=== PATIENT | female | born 1995 | race Two or more races ===

== ENCOUNTER 2024-03-06 07:18 | Emergency (ER) | payer BC, MEDICAID, SELFPAY ==
[2024-03-06 07:20] VITALS: BMI 39.3
[2024-03-06 07:36] VITALS: BP 118/83; PULSE 106; RESP 18; TEMP 37.2; O2SAT 97
--- NOTE | 2024-03-06 07:53 | PD.EDRME ---
Rapid Medical Screening Exam [facility] Arrival date/time: 03/06/24 07:18 Chief Complaint: OB/Uterine Contractions Vital signs: Vital Signs Temperature 99.0 F 03/06/24 07:36 Pulse Rate 106 H 03/06/24 07:36 Respiratory Rate 18 03/06/24 07:36 Blood Pressure 118/83 03/06/24 07:36 Pulse Oximetry (%) 97 03/06/24 07:36 Oxygen Delivery Method Room Air 03/06/24 07:36 [facility] Narrative: 28-year-old female presents emergency department with complaint of vaginal bleeding that started yesterday. She complains of back pain and pelvic pain. She is G3, P2 currently 12 weeks . She denies any alleviating or aggravating factors
--- NOTE | 2024-03-06 07:55 | XR_ITS ---
Examination: Complete OB ultrasound, less than 14 weeks, transabdominal Date and time of exam: March 06, 2024 0842 hrs. Indications: Vaginal bleeding with left-sided pelvic pain onset today Technique: Obstetrical ultrasound images less than 14 weeks performed via transabdominal imaging Findings: A normal shaped single intrauterine gestation is present in the uterus. pole 5.1 cm corresponds to 11 week 6 day gestational age Cardiac motion 158 BPM Ultrasonographic survey of visible and placental structures unremarkable. Amniotic fluid volume appears appropriate for this estimated gestational age. Right ovary 2.9 x 1.9 x 2.7 cm arterial flow Left ovary 3.9 x 2.9 x 3.2 cm arterial flow, 34 x 25 mm cyst Impression: Viable intrauterine gestation 11 weeks 6 days.
[2024-03-06 08:34] LABS: Basophils % (Auto) 0 % (0-2.5); Eosinophils # (Auto) 0.1 Thou/mm3 (0.0-0.5); Eosinophils % (Auto) 1 % (0-10); Hematocrit 34.6 % (36.0-46.0); Hemoglobin 11.8 g/dL (12.0-16.0); Immature Granulocytes % (Auto) 0 % (0-0); Immature Granulocytes Auto 0.02 Thou/mm3 (0.00-0.00); Lymphocytes # (Auto) 2.2 Thou/mm3 (1.0-4.8); Lymphocytes % (Auto) 24 % (10-50); Mean Corpuscular HGB Conc 34.1 g/dl (31.0-37.0); Mean Corpuscular Hemoglobin 28.7 pg (25.0-35.0); Mean Corpuscular Volume 84 fL (80-100); Monocytes # (Auto) 0.5 Thou/mm3 (0.0-0.8); Monocytes % (Auto) 5 % (0-12); Neutrophils # (Auto) 6.4 Thou/mm3 (1.8-7.7); Neutrophils % (Auto) 70 % (37-80); Nucleated Red Blood Cell % 0 /100 WBC (0); Platelet Count 308 Thou/mm3 (140-440); RDW Standard Deviation 40.2 fL (36.4-46.3); Red Blood Count 4.11 Miln/mm3 (4.00-5.20); White Blood Count 9.2 Thou/mm3 (3.6-11.0)
[2024-03-06 08:49] LABS: Alanine Aminotransferase 10 U/L (10-49); Albumin, Serum 4.5 gm/dL (3.5-5.0); Albumin/Globulin Ratio 1.6 (1.2-2.2); Alkaline Phosphatase 127 U/L (46-116); Anion Gap 8 (7-16); Aspartate Amino Transferase < 8 U/L (0-34); BUN/Creatinine Ratio 14 Ratio (12-20); Bilirubin,Total 0.3 mg/dL (0.3-1.2); Blood Urea Nitrogen 7 mg/dL (9-23); Calcium 9.3 mg/dL (8.3-10.6); Calcium (Corrected) 9.3 mg/dL (8.5-10.1); Carbon Dioxide 24.2 mMol/L (20.0-31.0); Chloride 105 mMol/L (98-107); Creatinine (Component) 0.5 mg/dL (0.6-1.3); Globulin 2.8 gm/dL (2.3-3.5); Glucose 91 mg/dL (74-106); Osmolality,Calculated 271 (275-295); Sodium 137 mMol/L (136-145); Total Protein 7.3 gm/dL (5.7-8.2); eGFR > 60 See Note
[2024-03-06 08:55] LABS: Collection Type, Urine Clean Catch
[2024-03-06 09:06] LABS: Bacteria,Urine Rare; Bilirubin,Urine Negative (Negative); Blood,Urine 3+ (Negative); Color,Urine Yellow (Lt Yel-Yel); Glucose, Urine Negative (Negative); Ketones,Urine Negative (Negative); Leukocyte Esterase,Urine Negative (Negative); Nitrite,Urine Negative (Negative); Protein,Urine Trace (Neg - Trace); RBC,Urine 4 /hpf (0-3); Specific Gravity,Urine 1.031 (1.001-1.035); Squamous Epithelial Cell,Urine 7 /hpf (0-5); Urobilinogen,Urine Negative mg/dL (0.0-1.0); WBC,Urine 3 /hpf (0-5)
[2024-03-06 09:07] LABS: Clarity,Urine Hazy (Clear/Hazy)
[2024-03-06 09:38] LABS: Beta HCG,Quantitative 91682 mIU/mL (<5.0)
--- NOTE | 2024-03-06 11:31 | PD.EDRME ---
Rapid Medical Screening Exam E Arrival date/time: 03/06/24 07:18 28-year-old female presents emergency department with complaint of vaginal bleeding that started yesterday. She complains of back pain and pelvic pain. She is G3, P2 currently 12 weeks . She denies any alleviating or aggravating factors Chief Complaint: OB/Uterine Contractions Time Seen by Provider: 03/06/24 11:31 Vital signs: Vital Signs Temperature 99.0 F 03/06/24 07:36 Pulse Rate 106 H 03/06/24 07:36 Respiratory Rate 18 03/06/24 07:36 Blood Pressure 118/83 03/06/24 07:36 Pulse Oximetry (%) 97 03/06/24 07:36 Oxygen Delivery Method Room Air 03/06/24 07:36 [facility] Narrative: 28-year-old female presents emergency department with complaint of vaginal bleeding that started yesterday. She complains of back pain and pelvic pain. She is G3, P2 currently 12 weeks . She denies any alleviating or aggravating factors
--- NOTE | 2024-03-06 11:34 | EDNOTE_ITS ---
ED General RME/HPI General Chief complaint: OB/Uterine Contractions Stated complaint: 12 wks, spotting, cramping since morning Time Seen by Provider: 03/06/24 11:31 Arrival date/time: 03/06/24 07:18 CC: Vaginal spotting HPI ongoing this morning, diffuse mild low center abdominal cramping no back pain denies any nausea vomiting painful urination or bloody urination patient is a G3, P2 at estimated 12 weeks. No other complaints has not had her first OB appointment yet. Related Data Home Medications ?Medication ?Instructions ?Recorded ?Confirmed ergocalciferol (vitamin D2) 1,250 1.25 mcg PO QWEEK 12/08/22 12/08/22 mcg (50,000 unit) capsule Previous Rx's ?Medication ?Instructions ?Recorded docusate sodium 100 mg capsule 100 mg PO BID #40 caps 12/09/22 (Colace) hydrocodone 5 mg-acetaminophen 325 1 tab PO Q6H PRN pain (scale score 12/09/22 mg tablet 7-10) #20 tabs ibuprofen 600 mg tablet 600 mg PO Q8H PRN pain (scale 12/09/22 score 4-6) #15 tabs schtgnf-qgagxrfiapkto-zqatfcjn 250 2 tab PO DAILY PRN headache #14 01/27/23 mg-250 mg-65 mg tablet (Excedrin tabs Migraine) Allergies Allergy/AdvReac Type Severity Reaction Status Date / Time No Known Allergies Allergy Verified 08/19/23 17:17 Review of Systems Review of Systems Narrative Review of Systems: GEN: No fever, no chills, no weight loss EYES: No discharge, no visual changes, no pain HEENT: No ear pain, no congestion, no sore throat PULM: No shortness of breath, no cough, no congestion CV: No chest pain, no dyspnea on exertion, no palpitations GI: No nausea, no vomiting, no diarrhea, no pain, no constipation : No frequency, no urgency, no dysuria MUSC/SKEL: No joint pain, no back pain SKIN: No rash PSYCH: No hallucinations, no depression HEME/LYMPH: No easy bleeding or bruising tendencies NEURO: No weakness, no headache Past Medical History Past Medical History NEUROLOGIC: Negative Neurological Disorders or Seizures CARDIAC: Negative Cardiac Disorders or Congestive Heart Failure RESPIRATORY: Positive Pneumonia; Negative Chronic Obstructive Pulmonary Disease (COPD) or Asthma GASTROINTESTINAL: Positive Gastrointestinal Disorders, Gall Bladder Disease and Obesity; Negative Hepatitis or Colorectal Cancer GENITOURINARY: Positive Genitourinary Disorders and Kidney Stones; Negative Renal Disease or Prostate Cancer REPRODUCTIVE: Positive Previous Pregnancies; Negative Breast Cancer, Endometriosis, Pelvic Inflammatory Disease, Testicular Cancer or Uterine Prolapse MUSCULOSKELETAL: Negative Musculoskeletal Disorders or Bone Cancer ENDOCRINE: Negative Endocrine Disorders, Diabetes Mellitus Type 1 or Diabetes Mellitus Type 2 HEMATOLOGIC: Positive Blood Disorders and Anemia; Negative Leukemia, Hemophilia, Sickle Cell Disease or Clotting Problems PSYCHO/SOCIAL: Negative Depression or Anxiety OTHER HISTORY: Positive Chicken Pox; Negative Hospitalization, Autoimmune Disease, Down Syndrome, Developmental Delay, Shingles, Falls, Blood Transfusions, Anesthesia Reactions, MRSA, VRSA, Human Immunodeficiency Virus (HIV), Measles, Mumps, Rubella (Czech Measles), Pertussis, Clostridium Difficile, Cancer, Breast Cancer, Cervical Cancer, Colorectal Cancer, Lung Cancer, Ovarian Cancer, Prostate Cancer or Testicular Cancer Family History FAMILY HISTORY: Positive Family Surgery (MOTHER HAD ANKLE SX); Negative Family Psychiatric Problems, Family Respiratory Disorders, Family Cardiac Disorders, Family Gastrointestinal Problems, Family Cancer or Family Anesthesia Reaction Surgical History SURGICAL: Negative Section Social History SMOKING STATUS: Never smoker SECOND HAND EXPOSURE: No ED Exam Narrative Physical exam: [General: Obese not in any acute distress Head normocephalic HEENT: Within acceptable limits Neck is supple nontender Chest equal chest rise nontender to palpation Respiratory: Clear to auscultation no wheezes crackles or rubs CV: Rate rhythm is regular no murmurs rubs or clicks Abdomen is distended secondary to body habitus soft nontender no masses positive bowel sounds all 4 quadrants Back: No CVA tenderness no spinous process tenderness from cervical spine thoracic and lumbar spine Skin: Intact no petechiae rash induration ulceration or crepitus Extremities: Moving all extremity against resistance cap refill less than 2 seconds neurosensory intact Neuro: Awake alert oriented x3 Glascow coma 15 no focal deficits] Course Quality Measures none Orders Category Date Time Status US OB <= 14 weeks fetus Stat Exams 03/06/24 07:55 Completed ABO/RH Type Stat Lab 03/06/24 07:55 Completed Beta HCG,Quantitative Stat Lab 03/06/24 07:55 Completed CBC Stat Lab 03/06/24 07:55 Completed Comprehensive Metabolic Panel Stat Lab 03/06/24 07:55 Completed Urinalysis Stat Lab 03/06/24 08:34 Completed Vital Signs Vital signs: Vital Signs Temperature 99.0 F 03/06/24 07:36 Pulse Rate 106 H 03/06/24 07:36 Respiratory Rate 18 03/06/24 07:36 Blood Pressure 118/83 03/06/24 07:36 Pulse Oximetry (%) 97 03/06/24 07:36 Oxygen Delivery Method Room Air 03/06/24 07:36 MDM Patient data External records reviewed:: [facility] previous records Clinical information provided by:: patient Social determinants that could affect healthcare access:: none Patient has the following chronic illnesses:: None How is presenting disease/condition affected by chronic disease/condition?: u neffected by Evaluation data The following diagnostics were reviewed and interpreted by me:: lab results and radiology exam(s) Lab and/or radiology exams considered but not ordered:: Ultrasound shows a single IUP at 12 weeks 2 days heart tones at 158. CBC shows no acute leukocytosis anemia thrombocytopenia CMP shows no acute electrolyte imbalances renal impairment transaminitis or T. bili elevation. Quantitative hCG is at 91,600 urine is negative for UTI ABO Rh is O+. Interpretation Summary: Single IUP second trimester vaginal bleeding Medications Medications considered but not ordered:: None Medication administrations:: None Consultations Consultation(s) initiated? (list below): No Diagnosis Differential Diagnosis ED Complaint MDM: Threatened miscarriage ectopic secondary menstrual vaginal bleeding Most likely diagnosis given after review of the tests above:: Secondary menstrual vaginal bleeding Admission Indicated Admission indicated?: not indicated Explain why admission is indicated or not indicated:: Stable for follow-up Admission Request Was there a request for admission?: No Disposition Plan Disposition Plan: Discharge Discharge Attestation Discharge Attestation: The patient and all family members were given an opportunity to ask questions and understood the discharge instructions. Discharge instructions specifically effects, indications for sooner follow up or return to the emergency department, and the expected course of current diagnosis. Patient condition: Stable Medical Decision Making Differential Diagnosis Differential Diagnosis: Threatened miscarriage ectopic secondary menstrual vaginal bleeding Lab Data 03/06/24 07:55 03/06/24 07:55 Labs: Lab Results 03/06/24 03/06/24 Range/Units 07:55 08:34 WBC 9.2 (3.6-11.0) Thou/mm3 RBC 4.11 (4.00-5.20) Miln/mm3 Hgb 11.8 L (12.0-16.0) g/dL Hct 34.6 L (36.0-46.0) % MCV 84 (80-100) fL MCH 28.7 (25.0-35.0) pg MCHC 34.1 (31.0-37.0) g/dl RDW Std Deviation 40.2 (36.4-46.3) fL Plt Count 308 (140-440) Thou/mm3 Neut % (Auto) 70 (37-80) % Lymph % (Auto) 24 (10-50) % [place] % (Auto) 5 (0-12) % Eos % (Auto) 1 (0-10) % Baso % (Auto) 0 (0-2.5) % Neut # (Auto) 6.4 (1.8-7.7) Thou/mm3 Lymph # (Auto) 2.2 (1.0-4.8) Thou/mm3 [place] # (Auto) 0.5 (0.0-0.8) Thou/mm3 Eos # (Auto) 0.1 (0.0-0.5) Thou/mm3 Baso # (Auto) 0.0 (0.0-0.2) Thou/mm3 Immature Gran # (Auto) 0.02 H (0.00-0.00) Thou/mm3 Absolute Nucleated RBC 0.00 (0.00-0.00) Thou/mm3 Immature Gran % 0 (0-0) % Nucleated RBC % 0 (0) /100 WBC Sodium 137 (136-145) mMol/L Potassium 4.0 (3.4-5.1) mMol/L Chloride 105 (98-107) mMol/L Carbon Dioxide 24.2 (20.0-31.0) mMol/L Anion Gap 8 (7-16) BUN 7 L (9-23) mg/dL Creatinine 0.5 L (0.6-1.3) mg/dL Estim Creat Clear Calc 181.0 (>60) mL/min eGFR > 60 (60 - ) See Note BUN/Creatinine Ratio 14 (12-20) Ratio Glucose 91 (74-106) mg/dL Calculated Osmolality 271 L (275-295) Calcium 9.3 (8.3-10.6) mg/dL Corrected Calcium 9.3 (8.5-10.1) mg/dL Total Bilirubin 0.3 (0.3-1.2) mg/dL AST < 8 (0-34) U/L ALT 10 (10-49) U/L Alkaline Phosphatase 127 H (46-116) U/L Total Protein 7.3 (5.7-8.2) gm/dL Albumin 4.5 (3.5-5.0) gm/dL Globulin 2.8 (2.3-3.5) gm/dL Albumin/Globulin Ratio 1.6 (1.2-2.2) Beta HCG, Quant 59499 (<5.0) mIU/mL Ur Collection Type Clean Catch Urine Color Yellow (Lt Yel-Yel) Urine Clarity Hazy (Clear/Hazy) Urine pH 6.0 (5.0-7.0) Ur Specific [place] 1.031 (1.001-1.035) Urine Protein Trace (Neg - Trace) Urine Glucose (UA) Negative (Negative) Urine Ketones Negative (Negative) Urine Blood 3+ A (Negative) Urine Nitrite Negative (Negative) Urine Bilirubin Negative (Negative) Urine Urobilinogen (Auto) Negative (0.0-1.0) mg/dL Ur Leukocyte Esterase Negative (Negative) Urine RBC 4 H (0-3) /hpf Urine WBC 3 (0-5) /hpf Ur Squamous Epith Cells 7 H (0-5) /hpf Urine Bacteria Rare (None) Blood Type O Positive Blood Bank Wristband ID Yes Discharge Plan Plan Patient Disposition: HOME (Self Care) Patient condition on transfer: Stable Prescriptions/Referrals Prescriptions/Med Rec: No Action ergocalciferol (vitamin D2) 1,250 mcg (50,000 unit) capsule 1.25 mcg PO QWEEK Patient Comments: TAKE 1 CAPSULE BY MOUTH WEEKLY FOR 6 WEEKS docusate sodium [Colace] 100 mg capsule 100 mg PO BID Qty: 40 0RF hydrocodone-acetaminophen 5-325 mg tablet 1 tab PO Q6H MDD 4 PRN (Reason: pain (scale score 7-10)) Qty: 20 0RF ibuprofen 600 mg tablet 600 mg PO Q8H PRN (Reason: pain (scale score 4-6)) Qty: 15 0RF Excedrin Migraine 250-250-65 mg tablet 2 tab PO DAILY PRN (Reason: headache) Qty: 14 0RF Referrals: Joseline Hidalgo PA-C [Primary Care Provider] - In 1 week Problem List Clinical Impression: Vaginal bleeding during Patient/Caregiver Discharge Instructions Education Materials: Bleeding During Early Additional Instructions: Follow-up with your scheduled OB appointment if there is a worsening of symptoms return the emergency room for further evaluation. Print Language: Swiss Stand Alone Forms: Elza Award Info., Patient Portal Info Letter, Work/School Release PA/FILM PRODUCER Supervising Physician PA/FILM PRODUCER Supervising Physician: Vishnu Shelby ENP
[2024-03-06 11:35] VITALS: BP 119/79; PULSE 89; RESP 18; O2SAT 98
[2024-03-06 11:36] VITALS: TEMP 36.9
== END 2024-03-06 12:02 | disposition home or self-care (01) ==
PROVIDERS: Physician Assistant; Emergency Provider Emergency Medicine; PCP Physician Assistant
DX: O20.9 Hemorrhage in early pregnancy, unspecified (principal); Z3A.11 11 weeks gestation of pregnancy
CPT/HCPCS: 36415; 76801; 80053; 81001; 84702; 85025; 86900; 86901; 99284

== ENCOUNTER 2024-09-18 17:55 | Observation (INO) | payer MEDICAID, SELFPAY ==
[2024-09-18 17:57] VITALS: BP 118/77; PULSE 116; RESP 18; RESP 99; TEMP 36.6; BMI 43.5
[2024-09-18 18:11] VITALS: BP 120/78; PULSE 104
== END 2024-09-18 18:30 | disposition home or self-care (01) ==
PROVIDERS: Admitting Provider Obstetrics & Gynecology; Visit Provider Obstetrics & Gynecology
DX: O26.893 Other specified pregnancy related conditions, third trimester (principal); Z3A.40 40 weeks gestation of pregnancy; M54.9 Dorsalgia, unspecified
CPT/HCPCS: 59025; 59899

== ENCOUNTER 2024-09-21 04:58 | Inpatient (IN) | payer MEDICAID, SELFPAY ==
[2024-09-21] VITALS (27 sets, daily range): BP systolic 111–129; BP diastolic 74–94; PULSE 68–110; RESP 15–98; TEMP 36.5–36.9; O2SAT 96–99; BMI 43.4
--- NOTE | 2024-09-21 05:24 | PD.LDHP ---
Documentation for date of: 09/21/24 OB Labor/Induct. HPI History of Present Illness Chief complaint: contractions : 3 Para: 2 Term pregnancies: 2 pregnancies: 2 Living children: 2 History of Abortions: Spontaneous and Elective: 0 History of Vaginal deliveries: 2 History of sections: No History of : No Date of last menstrual period: 12/11/23 NAIMA: 09/23/24 Gestational Age (weeks): 40 Gestational Age (days): 5 Gestational age based on last menstrual period: 40 History of present illness: Patient presents for regular, painful ctx. No LOF. No vaginal bleeding. Normal movement. No fevers/chills. History of Present Adequate Care: Yes Narrative: Hx of 2 prior term in 2019 and 2021, no complications. Proven to 6lb. Current complicated by: +GBS Anemia taking iron UTI treated in Obesity (current BMI 43.4) Labs Labs: Positive: Rubella Titre and Group Beta Strep and Negative: RPR, Hepatitis B, HIV, Chlamydia and Gonorrhea Narrative: Rh pos Review of Systems Review of Systems Narrative Review of Systems: Review of Systems Systems Reviewed: All systems reviewed, normal except as documented Constitutional Constitutional: Denies body ache(s), Denies chills, Denies fever(s) and Denies headache(s) ENT Ears, Nose, Mouth, and Throat: Denies headache(s) and Denies vertigo Cardiovascular Cardiovascular: Denies chest pain, Denies palpitations, Denies dyspnea and Denies syncope Respiratory Respiratory: Denies cough, Denies dyspnea Gastrointestinal Gastrointestinal: Denies nausea and Denies vomiting Neurologic Neurologic: Denies convulsions, Denies headache(s), Denies other visual disturbances, Denies syncope and Denies vertigo Past Medical History Family History OTHER FAMILY HX: non-contributory Surgical History SURGICAL: Negative Section OTHER SURGICAL HX: cholecystectomy Social History SOCIAL: No tobacco/ETOH/illicit drug use Past Medical History Comments PMH COMMENT: Obesity (current BMI 43.4) Meds Home Medications and Allergies Home Medications ?Medication ?Instructions ?Recorded ?Confirmed ?Type ferrous sulfate 325 mg (65 mg 325 mg PO QDAY 09/21/24 09/21/24 History iron) tablet vits no.129-ferrous fum 1 tab PO QDAY 09/21/24 09/21/24 History 27 mg iron-folic acid 800 mcg tablet ( One Daily) Allergies Allergy/AdvReac Type Severity Reaction Status Date / Time No Known Allergies Allergy Verified 09/21/24 05:05 OB Exam Physical Exam Vital signs: Pulse BP Pulse Ox 103 H 115/77 98 09/21/24 05:12 09/21/24 05:12 09/21/24 05:22 Narrative: General: well developed, well nourished, no acute distress, conversant Cardiac: normal heart rate Lungs: breathing without distress Abdomen: soft, gravid, non-tender, no rebound or guarding Extremities: no pain with palpation of calves Detailed Labor and Delivery Exam Dilation (cm): 4 Effacement (%): 60 station: -2 Presentation: Vertex Membranes: intact Baseline heart rate: 135 monitor accelerations: 15x15 monitor decelerations: None intermodal truck driver variability: Moderate (11-25) Contraction frequency (min): q4-5min OB Results Labs 09/21/24 12:33 OB Assessment & Plan Assessment and Plan (1) Active labor at term: Status: Acute Assessment and plan: Dinorah is a 29yo with SIUP at 40&5wk presenting in active labor. Regular/painful contractions, SCE: 4/60/-2. Vitals wnl, benign exam. Reassuring assessment. PNC with Dr. Cardoza. PMhx/ complicated by: +GBS Anemia taking iron UTI treated in Obesity (current BMI 43.4) Plan: -Admit to L&D -Establish IV, routine labs -CEFM -Clear liquid diet -Ski Technician/consent re: -GBS status: positive. Ampicillin per protocol. -Augment with pitocin prn -Anticipate -Safe to proceed (2) Group beta Strep positive: Status: Acute (3) Obesity affecting in third trimester: Status: Acute (4) Anemia affecting in third trimester: Status: Acute (3) Obesity affecting in third trimester Qualifiers: Obesity type affecting : unspecified obesity Qualified Code(s): O99.213 - Obesity complicating , third trimester
[2024-09-21] MEDS: RINGERS LACTATED 1000 ML 1,000 ML 100 ML IV (05:44)
[2024-09-21] MEDS: Ampicillin Inj 2,000 MG in SODIUM CHLORIDE 0.9% (POP) 100 ML 200 MG IV (05:46)
[2024-09-21 06:31] LABS: Basophils # (Auto) 0.0 Thou/mm3 (0.0-0.2); Basophils % (Auto) 0 % (0-2.5); Eosinophils # (Auto) 0.0 Thou/mm3 (0.0-0.5); Eosinophils % (Auto) 1 % (0-10); Hematocrit 33.0 % (36.0-46.0); Hemoglobin 11.7 g/dL (12.0-16.0); Immature Granulocytes Auto 0.02 Thou/mm3 (0.00-0.00); Lymphocytes # (Auto) 1.9 Thou/mm3 (1.0-4.8); Lymphocytes % (Auto) 31 % (10-50); Mean Corpuscular HGB Conc 35.5 g/dl (31.0-37.0); Mean Corpuscular Hemoglobin 29.1 pg (25.0-35.0); Mean Corpuscular Volume 82 fL (80-100); Monocytes # (Auto) 0.4 Thou/mm3 (0.0-0.8); Monocytes % (Auto) 7 % (0-12); Neutrophils # (Auto) 3.7 Thou/mm3 (1.8-7.7); Neutrophils % (Auto) 61 % (37-80); Nucleated Red Blood Cell # 0.00 Thou/mm3 (0.00-0.00); Nucleated Red Blood Cell % 0 /100 WBC (0); Platelet Count 244 Thou/mm3 (140-440); RDW Standard Deviation 40.5 fL (36.4-46.3); Red Blood Count 4.02 Miln/mm3 (4.00-5.20); White Blood Count 6.1 Thou/mm3 (3.6-11.0)
[2024-09-21 06:57] LABS: Syphilis Nonreactive (Nonreactive)
[2024-09-21] MEDS: OXYTOCIN in NS 20 units 20 UNIT/1,000 ML BAG 125 UNIT IV (08:00)
--- NOTE | 2024-09-21 08:14 | OBDSUM_ITS ---
Data (James) Data Hx Section: No : 3 Term: 2 : 2 Livin Abortions: Spontaneous & Theraputic: 0 Delivery Data (James) Labor Data Initiation of labor: Spontaneous Induction/Augmentation Agent: None ROM date: 09/21/24 ROM time: 07:54 Amniotic membrane rupture type: Artificial Amniotic fluid description: Clear Delivery Data Onset of labor date: 09/21/24 Onset of labor time: 05:20 Complete dilation date: 09/21/24 Complete dilation time: 07:55 delivery date: 09/21/24 delivery time: 07:59 Placenta delivery date: 09/21/24 Placenta delivery time: 08:05 Stage 1 total time: Labor - Stage 1 Duration 2 hours and 35 minutes Delivered by: Delivery nurse: tom seo Neworn nurse: ana paula seo Garage Mechanic at delivery: Yes () Support person(s) at delivery: fob Delivery Method Delivery method: Normal Vaginal Delivery Presentation: Vertex Anesthesia Type Anesthesia Type: None Placenta Placenta delivery description: Spontaneous Cord blood sent to lab: Yes cord blood collection: Cord Blood Type Episiotomy Episiotomy description: None EBL Estimated blood loss (ml): 150 Umbilical Cord cord description: 3 Vessels Additional Procedures Dinorah is a 29yo [id number] s/p uncomplicated at 40&5wk after presenting in active labor, delivering at 0759 on 09/21/2024. On presentation, SCE was 4/60/-2. She progressed without pitocin augmentation to 9cm at which point AROM was performed, clear. She then proceeded with the next contraction to C/C/0. Was only able to receive 1 dose of IV ampicillin for GBS pos. She had declined epidural. With two pushes, 's head delivered OA and restituted ANDRIY. Left anterior shoulder delivered easily followed by posterior shoulder and corpus. Infant had spontaneous cry and was vigorous. Apgars 7/9. placed on maternal abdomen where nose/mouth were suctioned and dried/stimulated. After approximately 1 minute, cord was clamped x2 and cut by FOB. Cord blood collected for typing. With fundal massage and cord traction, placenta delivered spontaneously and in tact with 3 vessel centrally inserted cord. Fundal massage performed and IV pitocin given per protocol with fundus then firm at u-2cm and hemostasis noted. Inspection of perineum and vagina revealed no lacerations. Small trickle of blood, so sweep just within cervix/JOSE performed which retrieved a very small amount of clot. Both fundus and lower uterine segment were firm with bimanual massage. All counts correct x2. Mom and infant were doing well when I left the room. Linda Lu MD Complications Complications: none Stigler Data (James) Stigler Data order: 1 Stigler's gender: Female Identification band number: [id number] weight (gms): 3380 g Weight (pounds): 7 lbs and 7.2 ozs Stigler length: 51.44 cm 1 minute: 7 5 minutes: 9
[2024-09-21 13:35] LABS: Basophils # (Auto) 0.0 Thou/mm3 (0.0-0.2); Basophils % (Auto) 0 % (0-2.5); Eosinophils # (Auto) 0.0 Thou/mm3 (0.0-0.5); Eosinophils % (Auto) 0 % (0-10); Hematocrit 34.0 % (36.0-46.0); Hemoglobin 11.8 g/dL (12.0-16.0); Immature Granulocytes Auto 0.03 Thou/mm3 (0.00-0.00); Lymphocytes # (Auto) 1.2 Thou/mm3 (1.0-4.8); Lymphocytes % (Auto) 12 % (10-50); Mean Corpuscular HGB Conc 34.7 g/dl (31.0-37.0); Mean Corpuscular Hemoglobin 28.8 pg (25.0-35.0); Mean Corpuscular Volume 83 fL (80-100); Monocytes # (Auto) 0.3 Thou/mm3 (0.0-0.8); Monocytes % (Auto) 2 % (0-12); Neutrophils # (Auto) 8.8 Thou/mm3 (1.8-7.7); Neutrophils % (Auto) 85 % (37-80); Nucleated Red Blood Cell # 0.00 Thou/mm3 (0.00-0.00); Nucleated Red Blood Cell % 0 /100 WBC (0); Platelet Count 243 Thou/mm3 (140-440); RDW Standard Deviation 40.4 fL (36.4-46.3); Red Blood Count 4.10 Miln/mm3 (4.00-5.20); White Blood Count 10.3 Thou/mm3 (3.6-11.0)
[2024-09-21] MEDS: DOCUSATE SOD 100 MG CAPSULE PO (19:19)
[2024-09-21] MEDS: ACETAMINOPHEN 325 MG TABLET 650 MG PO (19:19)
[2024-09-22 04:00] VITALS: BP 119/82; PULSE 100; RESP 16; TEMP 36.8; O2SAT 98
[2024-09-22] MEDS: IBUPROFEN TAB 400 MG TABLET 800 MG PO (09:42)
[2024-09-22] MEDS: DOCUSATE SOD 100 MG CAPSULE PO (09:42)
[2024-09-22 11:45] VITALS: BP 114/78; PULSE 80; RESP 16; TEMP 36.9; O2SAT 98
--- NOTE | 2024-09-22 12:51 | PD.LDPPPRG ---
Subjective Subjective Interval history: The patient is a 29-year-old G3 now P3003 day #1 status post vaginal delivery 09/21/[address] Gibson around 8:00 in the morning. Patient is resting comfortably in bed breast-feeding. Her is at her bedside. All care is uncomplicated with Dr Cardoza. She would like to go home today if possible. She denies any fevers chills heavy vaginal bleeding. Her pain is controlled with oral pain medication Exam Vital Signs Temp Pulse Resp BP Pulse Ox O2 Del Method 98.5 F 80 16 114/78 98 Room Air 09/22/24 11:45 09/22/24 11:45 09/22/24 11:45 09/22/24 11:45 09/22/24 11:45 09/22/24 11:45 Narrative Exam Fundus is firm nontender extremities show no significant edema or erythema. Objective Labs 09/21/24 12:33 Labs: Laboratory Results - last 24 hr 09/21/24 12:33 WBC 10.3 D RBC 4.10 Hgb 11.8 L Hct 34.0 L MCV 83 MCH 28.8 MCHC 34.7 RDW Std Deviation 40.4 Plt Count 243 Neut % (Auto) 85 H Lymph % (Auto) 12 [place] % (Auto) 2 Eos % (Auto) 0 Baso % (Auto) 0 Neut # (Auto) 8.8 H Lymph # (Auto) 1.2 [place] # (Auto) 0.3 Eos # (Auto) 0.0 Baso # (Auto) 0.0 Immature Gran # (Auto) 0.03 H Absolute Nucleated RBC 0.00 Immature Gran % 0 Nucleated RBC % 0 Assessment & Plan Problem List (1) Group beta Strep positive: Problem details: Patient had rapid labor and had 1 dose of antibiotics given during labor. Status: Acute (2) Obesity affecting in third trimester: Problem details: Encourage diet and exercise Status: Acute (3) Anemia affecting in third trimester: Problem details: Postdelivery hemoglobin stable 11.8. Continue vitamins and iron rich foods. Status: Acute (4) Term delivered: Status: Acute Assessment and plan: Post orders given including no intercourse tampons douching swimming pools x 6 weeks. Follow-up with Dr Cardoza in 2 to 6 weeks for a check. Call for heavy vaginal bleeding, breast-feeding concerns, or severe depression. Time Spent With Patient Time: Total time spent is greater than 50% in coordination of care (as documented) at patient's floor/unit and/or counseling patient: Time with patient: less than 15 minutes
--- NOTE | 2024-09-22 12:54 | ESDS_ITS ---
DS: Providers Provider Date of admission: 09/21/24 05:19 Primary care physician: Physician No Primary/Family Admitting Provider: Linda Lu MD Attending Provider on Admission: Linda Lu MD Consults: 09/21/24 08:12 Referral Routine Comment: Attending Provider on DC: [facility] ([facility]) Discharging Provider: Karen Graham MD ([facility]) Anticipated date of discharge: 09/22/24 DS: Diagnosis Discharge Diagnosis (1) Term delivered: Status: Acute Assessment & Plan: Patient delivered 09/21/2024 and had uncomplicated course. Discharged home day #1 in stable condition. (2) Obesity affecting in third trimester: Status: Acute (3) Group beta Strep positive: Status: Acute Problem List Completed Was Problem List Reviewed/Reconciled?: Yes Summary/Hosp Course Brief History: The patient is a 29-year-old -0-0-2 at term with all care uncomplicated Dr Cardoza admitted by Dr. Lu on 09/21/2024 in labor. Please see H&P for further details. She underwent an uncomplicated vaginal delivery 09/21/24 at 800. See delivery notes for further details. She had an uncomplicated course and was discharged home day #1 in stable condition. Peripartum Data Delivery Method: Normal Vaginal Delivery Episiotomy Description: None Laceration Description: see Delivery Summary complications: none Status at Discharge Cognitive/behavioral status at discharge: Patient is alert and oriented x 3 in no apparent distress Functional status at discharge: independent ambulation Overall status at discharge: patient is progressing back to baseline Time Spent with Patient Time attestation: Total time spent providing and/or coordinating discharge services: Time spent: Less than 30 minutes Specific discharge activities: Pelvic rest x 6 weeks. Call for heavy vaginal bleeding, fevers, chills, severe depression. Follow-up with Dr Cardoza for care. Exam Vital Signs Temp Pulse Resp BP Pulse Ox O2 Del Method 98.5 F 80 16 114/78 98 Room Air 09/22/24 11:45 09/22/24 11:45 09/22/24 11:45 09/22/24 11:45 09/22/24 11:45 09/22/24 11:45 Narrative Exam Fundus is firm at umbilicus, nontender. Extremities show noticed no significant edema or erythema. Discharge Plan Plan Patient Disposition: HOME (Self Care) Disposition Comment: Stable Patient condition on transfer: Stable Prescriptions/Referrals Prescriptions/Med Rec: New docusate sodium 100 mg Capsule 100 mg PO BID 10 Days Qty: 20 0RF ibuprofen 800 mg tablet 800 mg PO Q8H PRN (Reason: See Comments) 10 Days Qty: 20 0RF No Action ferrous sulfate 325 mg (65 mg iron) tablet 325 mg PO QDAY Patient Comments: TAKE 1 TABLET BY MOUTH EVERY DAY One Daily 27 mg iron- 800 mcg tablet 1 tab PO QDAY Patient Comments: Take 1 tablet by mouth once a day Referrals: No Primary/Family,Physician [Primary Care Provider] - Patient/Caregiver Discharge Instructions Discharge Activity: activity as tolerated and other Other Discharge Activity Instructions:: vaginal rest and no heavy lifting more than 10 pounds for 6 weeks Other Discharge Diet Instructions: regular Education Materials: After a Vaginal Print Language: Slovenian Activity Restrictions/Additional Instructions: follow up with OBGYN in 2 to 4 weeks for visit, call clinic to schedule appointment Stand Alone Forms: Elza Award Info., Patient Portal Info Letter Discharge Order Discharge Orders: Discharge (Routine); Ordered 09/22/24 Ordered By: Karen Graham ([facility]) Planned Discharge Date 09/22/24 (2) Obesity affecting in third trimester Qualifiers: Obesity type affecting : unspecified obesity Qualified Code(s): O99.213 - Obesity complicating , third trimester
== END 2024-09-22 15:50 | disposition home or self-care (01) | DRG 560 ==
LOC: S4SX 10:56 → S4NX 13:14
PROVIDERS: Admitting Provider Obstetrics & Gynecology; Visit Provider Obstetrics & Gynecology
DX: O99.824 Streptococcus B carrier state complicating childbirth (principal); O48.0 Post-term pregnancy; Z37.0 Single live birth; Z3A.40 40 weeks gestation of pregnancy; O23.43 Unspecified infection of urinary tract in pregnancy, third trimester; O62.3 Precipitate labor; O99.02 Anemia complicating childbirth; O99.214 Obesity complicating childbirth
CPT/HCPCS: 36415; 59025; 59409; 85025; 86780; 86850; 86900; 86901; J0290; J2590; J7120; A9270

== ENCOUNTER → 2024-12-15 | Outpatient (BNVA) | payer MEDICAID, SELFPAY | END | disposition home or self-care (01) | PROVIDERS: PCP Nurse Practitioner Family; Referring Provider Nurse Practitioner Family; Visit Provider Nurse Practitioner Family | DX: F32.1 Major depressive disorder, single episode, moderate (principal); F41.9 Anxiety disorder, unspecified | CPT/HCPCS: 99204 ==

== ENCOUNTER 2025-01-05 13:01 | Outpatient (AMBR) | payer MEDICAID, SELFPAY ==
--- NOTE | 2025-01-05 13:37 | LAC.VISIT ---
Assessment LAC OP History History History Comment: Mom has breast fed all previous children, never had history of plugged ducts or of mastitis. LAC Breast Assessment Breast Assessment Right: Breast Assessment Comment: mom has small, palpable, roundish ball on the outer quadrant of right breast. breast is not hot or red, there is no discharge at nipple. mom does notice a decrease in milk supply on the right side but has continued to latch baby as well as pump breast milk on the right side. there is slight pain with palpation but no other indications of issues LAC Pain Pain Right Breast: Pain Intensity: Tender Character of Pain: Stabbing Pain Comment: pain is only on touch or if her breast dangles when she does not have a bra on LAC Assessment Breast Feeding Assessment Breast Feeding Comment: is going well, baby is 3 months old and doing exclusive , only pumps when she will be away from baby for a period of time. LAC Intervention Discharge Follow Up Appointment Date and Time: an needed OP DC Assessment Discharge Follow Up Appointment Date and Time: an needed Visit Complete?: Yes
== END 2025-01-29 23:59 | disposition home or self-care (01) ==
LOC: HODLAC 13:01
DX: Z39.1 Encounter for care and examination of lactating mother (principal)

== ENCOUNTER → 2025-01-06 | Outpatient (BNVA) | payer MEDICAID, SELFPAY | END | disposition home or self-care (01) | PROVIDERS: PCP Nurse Practitioner Family; Referring Provider Nurse Practitioner Family; Visit Provider Nurse Practitioner Family | DX: F41.9 Anxiety disorder, unspecified (principal); Z09 Encounter for follow-up examination after completed treatment for conditions other than malignant neoplasm; F32.1 Major depressive disorder, single episode, moderate | CPT/HCPCS: 99213 ==

== ENCOUNTER → 2025-01-20 | Outpatient (BNVA) | payer MEDICAID, SELFPAY | END | disposition home or self-care (01) | PROVIDERS: PCP Nurse Practitioner Family; Referring Provider Nurse Practitioner Family; Visit Provider Nurse Practitioner Family | DX: Z00.01 Encounter for general adult medical examination with abnormal findings (principal); Z13.1 Encounter for screening for diabetes mellitus; Z13.220 Encounter for screening for lipoid disorders; M25.562 Pain in left knee; M25.561 Pain in right knee; E66.9 Obesity, unspecified; Z68.38 Body mass index [BMI] 38.0-38.9, adult; F41.9 Anxiety disorder, unspecified; Z11.3 Encounter for screening for infections with a predominantly sexual mode of transmission; F32.1 Major depressive disorder, single episode, moderate; Z71.85 Encounter for immunization safety counseling | CPT/HCPCS: 99173; 99214; 99395; G0439 ==

== ENCOUNTER → 2025-01-30 | Outpatient (BNVA) | payer MEDICAID, SELFPAY | END | disposition home or self-care (01) | PROVIDERS: PCP Nurse Practitioner Family; Referring Provider Nurse Practitioner Family; Visit Provider Nurse Practitioner Family | DX: Z71.2 Person consulting for explanation of examination or test findings (principal); E55.9 Vitamin D deficiency, unspecified | CPT/HCPCS: 99212; G0463 ==

== ENCOUNTER → 2025-02-02 | Outpatient (BNVA) | payer MEDICAID, SELFPAY | END | disposition home or self-care (01) | PROVIDERS: PCP Nurse Practitioner Family; Referring Provider Nurse Practitioner Family; Visit Provider Nurse Practitioner Primary Care | DX: R10.10 Upper abdominal pain, unspecified (principal) | CPT/HCPCS: 81001; 99214 ==

== ENCOUNTER → 2025-02-10 | Outpatient (BNVA) | payer MEDICAID, SELFPAY | END | disposition home or self-care (01) | PROVIDERS: PCP Nurse Practitioner Primary Care; Referring Provider Nurse Practitioner Primary Care; Visit Provider Nurse Practitioner Primary Care | DX: R10.10 Upper abdominal pain, unspecified (principal); Z71.2 Person consulting for explanation of examination or test findings | CPT/HCPCS: 99212; G0463 ==

== ENCOUNTER 2025-02-14 12:00 | Emergency (ER) | payer MEDICAID, SELFPAY ==
[2025-02-14 12:08] VITALS: BP 122/86; PULSE 94; RESP 20; TEMP 36.8; O2SAT 96; BMI 34.9
[2025-02-14 12:52] LABS: Collection Type, Urine Clean Catch
[2025-02-14 12:54] LABS: Basophils # (Auto) 0.0 Thou/mm3 (0.0-0.2); Basophils % (Auto) 0 % (0-2.5); Eosinophils # (Auto) 0.0 Thou/mm3 (0.0-0.5); Eosinophils % (Auto) 1 % (0-10); Hematocrit 38.8 % (36.0-46.0); Hemoglobin 13.0 g/dL (12.0-16.0); Immature Granulocytes Auto 0.02 Thou/mm3 (0.00-0.00); Lymphocytes # (Auto) 2.3 Thou/mm3 (1.0-4.8); Lymphocytes % (Auto) 33 % (10-50); Mean Corpuscular HGB Conc 33.5 g/dl (31.0-37.0); Mean Corpuscular Hemoglobin 29.7 pg (25.0-35.0); Mean Corpuscular Volume 89 fL (80-100); Monocytes # (Auto) 0.4 Thou/mm3 (0.0-0.8); Monocytes % (Auto) 6 % (0-12); Neutrophils # (Auto) 4.0 Thou/mm3 (1.8-7.7); Neutrophils % (Auto) 60 % (37-80); Nucleated Red Blood Cell # 0.00 Thou/mm3 (0.00-0.00); Nucleated Red Blood Cell % 0 /100 WBC (0); Platelet Count 329 Thou/mm3 (140-440); RDW Standard Deviation 39.6 fL (36.4-46.3); Red Blood Count 4.37 Miln/mm3 (4.00-5.20); White Blood Count 6.8 Thou/mm3 (3.6-11.0)
[2025-02-14 13:01] LABS: HCG Qualitative,Urine Negative
[2025-02-14 13:02] LABS: Bacteria,Urine Rare; Bilirubin,Urine Negative (Negative); Blood,Urine 1+ (Negative); Clarity,Urine Clear (Clear/Hazy); Color,Urine Yellow (Lt Yel-Yel); Glucose, Urine Negative (Negative); Ketones,Urine Negative (Negative); Leukocyte Esterase,Urine Positive (Negative); Nitrite,Urine Negative (Negative); PH,Urine 6.0 (5.0-7.0); Protein,Urine Trace (Neg - Trace); RBC,Urine 14 /hpf (0-3); Specific Gravity,Urine 1.033 (1.001-1.035); Squamous Epithelial Cell,Urine 8 /hpf (0-5); Urobilinogen,Urine Negative mg/dL (0.0-1.0); WBC,Urine 8 /hpf (0-5)
[2025-02-14 13:13] LABS: Alanine Aminotransferase 10 U/L (10-49); Albumin, Serum 5.0 gm/dL (3.5-5.0); Albumin/Globulin Ratio 1.9 (1.2-2.2); Alkaline Phosphatase 165 U/L (46-116); Anion Gap 10 (7-16); Aspartate Amino Transferase 16 U/L (0-34); BUN/Creatinine Ratio 17 Ratio (12-20); Bilirubin,Total 0.3 mg/dL (0.3-1.2); Blood Urea Nitrogen 10 mg/dL (9-23); Calcium 9.5 mg/dL (8.3-10.6); Calcium (Corrected) 9.5 mg/dL (8.5-10.1); Carbon Dioxide 25.5 mMol/L (20.0-31.0); Chloride 108 mMol/L (98-107); Creatinine (Component) 0.6 mg/dL (0.6-1.3); Estimated Creatinine Clearance 156.5 mL/min (>60); Globulin 2.6 gm/dL (2.3-3.5); Glucose 92 mg/dL (74-106); Lipase 33 U/L (12-53); Osmolality,Calculated 283 (275-295); Potassium 4.1 mMol/L (3.4-5.1); Sodium 143 mMol/L (136-145); Total Protein 7.6 gm/dL (5.7-8.2); eGFR > 60 See Note
--- NOTE | 2025-02-14 13:27 | EDNOTE_ITS ---
<Statement entered by Fariha Rousseau MD - 02/14/25 17:44> As co-signing physician, I was present and available for consult prn. I concur with the plan and care as documented by the midlevel provider. ED Abdominal Pain RME/HPI General Chief Complaint: Abdominal Pain Stated complaint: LUQ ABD PAIN 10/09 Time seen by provider: 02/14/25 12:09 Arrival date/time: 02/14/25 12:00 29-year-old female with no known medical history presents to the emergency room with a chief complaint of left upper quadrant abdominal tenderness x 2 days Source: patient Mode of arrival: ambulatory Limitations: no limitations Related Data Home Medications ?Medication ?Instructions ?Recorded ?Confirmed sertraline 50 mg tablet 50 mg PO QDAY 01/30/2502/10 Previous Rx's ?Medication ?Instructions ?Recorded cholecalciferol (vitamin D3) 1,250 1,250 mcg PO QWEEK 3 months #13 01/30/25 mcg (50,000 unit) tablet tabs pantoprazole 40 mg tablet,delayed 40 mg PO QDAY #30 ta bs 02/02/25 release (Protonix) Allergies Allergy/AdvReac Type Severity Reaction Status Date / Time No Known Allergies Allergy Verified 02/14/25 12:02 Review of Systems Review of Systems Systems Reviewed: All systems reviewed, normal except as documented Constitutional Constitutional: Reports system reviewed and no additional complaints, except as documented, Denies fatigue, Denies fever(s), Denies headache(s) and Denies weakness Eyes Eyes: Reports system reviewed and no additional complaints, except as documented, Denies blurry vision and Denies change in vision ENT Ears, Nose, Mouth, and Throat: Reports system reviewed and no additional complaints, except as documented, Denies otalgia, Denies headache(s), Denies nasal congestion, Denies throat swelling and Denies vertigo Cardiovascular Cardiovascular: Reports system reviewed and no additional complaints, except as documented, Denies chest pain, Denies dyspnea and Denies dyspnea on exertion Respiratory Respiratory: Reports system reviewed and no additional complaints, except as documented, Denies chest congestion, Denies cough, Denies dyspnea, Denies dyspnea on exertion and Denies wheezing Gastrointestinal Gastrointestinal: Reports system reviewed and no additional complaints, except as documented, Reports abdominal pain, Reports cramping, Reports nausea and Denies vomiting Genitourinary Genitourinary: Reports system reviewed and no additional complaints, except as documented Musculoskeletal Musculoskeletal: Reports system reviewed and no additional complaints, except as documented and Denies back pain Integumentary/Breasts Skin/Breast: Reports system reviewed and no additional complaints, except as documented and Denies wounds Neurologic Neurologic: Reports system reviewed and no additional complaints, except as documented, Denies confusion, Denies headache(s), Denies lack of coordination, Denies vertigo and Denies weakness Psychiatric Psychiatric: Reports system reviewed and no additional complaints, except as documented, Denies anxiety, Denies confusion, Denies depression, Denies paranoia, Denies suicidal ideation and Denies tactile hallucinations Endocrine Endocrine: Reports system reviewed and no additional complaints, except as documented and Denies fatigue Hematologic/Lymphatic Hematologic/Lymphatic: Reports system reviewed and no additional complaints, except as documented and Denies lymphadenopathy Allergic/Immunologic Allergic/Immunologic: Reports system reviewed and no additional complaints, except as documented, Denies throat swelling, Denies urticaria and Denies wheezing Past Medical History Past Medical History NEUROLOGIC: Negative Neurological Disorders or Seizures CARDIAC: Negative Cardiac Disorders or Congestive Heart Failure RESPIRATORY: Negative Chronic Obstructive Pulmonary Disease (COPD), Asthma or Pneumonia GASTROINTESTINAL: Positive Gastrointestinal Disorders, Gall Bladder Disease and Obesity; Negative Hepatitis or Colorectal Cancer GENITOURINARY: Negative Genitourinary Disorders, Renal Disease, Kidney Stones or Prostate Cancer REPRODUCTIVE: Positive Previous Pregnancies; Negative Breast Cancer, Endometriosis, Pelvic Inflammatory Disease, Testicular Cancer or Uterine Prolapse MUSCULOSKELETAL: Negative Musculoskeletal Disorders or Bone Cancer ENDOCRINE: Negative Endocrine Disorders, Diabetes Mellitus Type 1 or Diabetes Mellitus Type 2 HEMATOLOGIC: Positive Blood Disorders and Anemia; Negative Leukemia, Hemophilia, Sickle Cell Disease or Clotting Problems PSYCHO/SOCIAL: Negative Depression or Anxiety OTHER HISTORY: Positive Chicken Pox; Negative Hospitalization, Autoimmune Disease, Down Syndrome, Developmental Delay, Shingles, Falls, Blood Transfusions, Anesthesia Reactions, Organ Transplant, MRSA, VRSA, Vancomycin-Resistant Enterococci, Human Immunodeficiency Virus (HIV), Measles, Mumps, Rubella ([place] Measles), Pertussis, Clostridium Difficile, Cancer, Breast Cancer, Cervical Cancer, Colorectal Cancer, Lung Cancer, Ovarian Cancer, Prostate Cancer or Testicular Cancer Family History FAMILY HISTORY: Positive Family Surgery; Negative Family Psychiatric Problems, Family Respiratory Disorders, Family Cardiac Disorders, Family Gastrointestinal Problems, Family Cancer or Family Anesthesia Reaction Surgical History SURGICAL: Positive Abdominal Surgery; Negative Cardiac Surgery, Endocrine Surgery, Ear Surgery, Nephrectomy, Joint Replacement, Neurologic Surgery, Section or Organ Transplant Social History SMOKING STATUS: Never smoker SECOND HAND EXPOSURE: No ED Exam General Limitations: Present no limitations General appearance: Present alert and in no apparent distress Head Head exam: Present atraumatic Eye Eye exam: Present normal appearance, PERRL and EOMI ENT ENT exam: Present normal exam, normal oropharynx and mucous membranes moist Neck Neck exam: Present normal inspection, full ROM and trachea midline Chest Chest inspection: Present normal inspection and symmetric chest wall rise Respiratory Respiratory exam: Present normal lung sounds bilaterally Cardiovascular Cardiovascular exam: Present regular rate, normal rhythm and normal heart sounds Abdominal Exam Abdominal exam: Present soft, tenderness and normal bowel sounds; Absent distention, guarding, rebound, trauma, Burnett's sign, tenderness at McBurney's Point or hernia Abdominal tenderness: Present LUQ and mild; Absent RUQ, RLQ or LLQ Extremities Exam Extremities exam: Present normal inspection and full ROM Back Exam Back exam: Present normal inspection and full ROM Neurological Exam Neurological exam: Present alert, oriented X3 and CN II-XII intact Psychiatric Psychiatric exam: Present normal affect and normal mood Skin Skin exam: Present warm, dry, intact and normal color Course Quality Measures none Orders Category Date Time Status CBC Stat Lab 02/14/25 12:27 Completed CMP [Comprehensive Metabolic Panel] Stat Lab 02/14/25 12:27 Completed HCG Qualitative,Urine Stat Lab 02/14/25 12:45 Completed Lipase Stat Lab 02/14/25 12:27 Completed UA [Urinalysis] Stat Lab 02/14/25 12:45 Completed Urine Culture Stat Lab 02/14/25 12:45 Received Vital Signs Vital signs: Vital Signs Temperature 98.3 F 02/14/25 12:08 Pulse Rate 94 02/14/25 12:08 Respiratory Rate 20 02/14/25 12:08 Blood Pressure 122/86 H 02/14/25 12:08 Pulse Oximetry (%) 96 02/14/25 12:08 Oxygen Delivery Method Room Air 02/14/25 12:08 Abdominal Pain MDM MDM Narrative MDM Narrative:: 29-year-old female with no known medical history presents to the emergency room with a chief complaint of left upper quadrant abdominal tenderness x 2 days Patient is hemodynamically stable and in no apparent distress Physical examination shows tenderness to the left upper quadrant with palpation. There is no tenderness to the epigastric area right upper quadrant and right lower quadrant right and left lower quadrant. The patient has a history of a cholecystectomy. CBC CMP were negative for any acute findings. Lipase was within normal limits Patient was discharged and educated to follow-up with primary care provider in the next 24 to 48 hours and return to the emergency room for any evidence of worsening signs or symptoms Patient data External records reviewed:: [facility] previous records Clinical information provided by:: patient Social determinants that could affect healthcare access:: none Patient has the following chronic illnesses:: No chronic illness How is presenting disease/condition affected by chronic disease/condition?: no chronic disease Evaluation data The following diagnostics were reviewed and interpreted by me:: lab results and radiology exam(s) Lab and/or radiology exams considered but not ordered:: Labs and radiology exams considered and ordered Interpretation Summary: N/A Medications / Prescriptions Medications or Prescriptions considered but not ordered:: No medication given Medication administrations:: No medication given Consultations Consultation(s) initiated? (list below): No Diagnosis Differential diagnosis abdominal pain: abdominal pain, constipation and gastroenteritis Most likely diagnosis given after review of the tests above:: Gastroenteritis Admission Indicated Admission indicated?: not indicated Admission Request Was there a request for admission?: No Disposition Plan Disposition Plan: Discharge Discharge Attestation Discharge Attestation: The patient and all family members were given an opportunity to ask questions and understood the discharge instructions. Discharge instructions specifically effects, indications for sooner follow up or return to the emergency department, and the expected course of current diagnosis. Patient condition: Stable Discharge Plan Plan Patient Disposition: HOME (Self Care) Discharge Disposition comment: Stable Prescriptions/Referrals Prescriptions/Med Rec: No Action sertraline 50 mg tablet 50 mg PO QDAY cholecalciferol (vitamin D3) 1,250 mcg (50,000 unit) tablet 1,250 mcg PO QWEEK 90 Days Qty: 13 0RF pantoprazole [Protonix] 40 mg tablet,delayed release (DR/EC) 40 mg PO QDAY Qty: 30 0RF Referrals: Mayo Elvis [employer],Nargis Apodaca NP [Primary Care Provider, Family Practice] - In 1 week Problem List Clinical Impression: Gastroenteritis Patient/Caregiver Discharge Instructions Education Materials: ED Gastroenteritis, Noninfectious Additional Instructions: Please follow-up with your primary care provider in the next 24 to 48 hours Your blood work was negative for any acute infection. Your pancreas levels were within normal limits Urinalysis was within normal limits Please follow-up with your primary care provider for further management For any evidence of worsening signs or symptoms return to the emergency room immediately Print Language: Qatari Stand Alone Forms: Elza Award Info., Work/School Release, Patient Portal Info Letter PA/CLOTH FOLDER HAND Supervising Physician PA/CLOTH FOLDER HAND Supervising Physician: Dr. Aragon
== END 2025-02-14 14:11 | disposition home or self-care (01) ==
PROVIDERS: Nurse Practitioner Family; Emergency Provider Emergency Medicine; PCP Nurse Practitioner Family
DX: K52.9 Noninfective gastroenteritis and colitis, unspecified (principal)
CPT/HCPCS: 36415; 80053; 81001; 81025; 83690; 85025; 87086; 99282